=== PATIENT | male | born 1990 | race Caucasian/White ===

== ENCOUNTER 2020-12-03 01:31 | Emergency (ER) | payer BC, MEDICAID ==
[~2020-12-03] VITALS: Ht 177.8 cm; Wt 90.9 kg
[2020-12-03 01:50] VITALS: BP 124/90
== END 2020-12-03 02:49 | disposition home or self-care (01) ==
LOC: EMS 01:32
DX: S09.90XA Unspecified injury of head, initial encounter (principal); F17.210 Nicotine dependence, cigarettes, uncomplicated; F12.90 Cannabis use, unspecified, uncomplicated; W19.XXXA Unspecified fall, initial encounter; Y93.89 Activity, other specified; Y92.89 Other specified places as the place of occurrence of the external cause; Y99.8 Other external cause status
CPT/HCPCS: 99281; Z7502